=== PATIENT | female | born 1940 | race Hispanic/Latino ===

== ENCOUNTER 2017-08-13 21:52 | Emergency (ER) | payer OTHER ==
[2017-08-13 22:18] LABS: BASOPHILS % (AUTO) 0.2 % (0.0-5.0); EOSINOPHILS % (AUTO) 1.5 % (0.0-8.0); HEMATOCRIT 39.3 % (36-48); LYMPHOCYTES % (AUTO) 21.3 % (21.0-51.0); MEAN CORPUSCULAR HEMOGLOBIN 30.6 pg (27.0-33.0); MEAN CORPUSCULAR HGB CONC 34.1 g/dL (32.0-36.0); MEAN CORPUSCULAR VOLUME 89.8 fL (79-99); MONOCYTES % (AUTO) 7.6 % (3.0-13.0); NEUTROPHILS % (AUTO) 69.4 % (40.0-77.0); PLATELET COUNT (AUTO) 223 K/uL (130-400); RED BLOOD CELL COUNT(AUTO) 4.37 MIL/uL (4.00-5.50); RED CELL DISTRIBUTION WIDTH 12.7 % (11.0-15.5); WHITE BLOOD COUNT (AUTO) 10.2 K/uL (4.8-10.8)
[2017-08-13 22:26] LABS: CREATININE 0.8 mg/dL (0.5-1.5); POTASSIUM 3.9 mmol/L (3.5-5.1)
[2017-08-13] MEDS ORDERED: HYDRALAZINE HCL 20 MG/ML VIAL ONE (22:29)
[2017-08-13] MEDS ORDERED: HYDROCHLOROTHIAZIDE 25 MG TABLET ONE (22:29)
[2017-08-13 22:31] LABS: ALBUMIN 3.4 g/dL (3.5-5.0); BILIRUBIN,TOTAL 0.3 mg/dL (0.2-1.0); TOTAL PROTEIN, SERUM 7.6 g/dL (6.0-8.3)
[2017-08-13 22:59] LABS: APPEARANCE,URINE Clear (CLEAR); BILIRUBIN,URINE Negative (NEGATIVE); COLOR,URINE Yellow (YELLOW); GLUCOSE, URINE (UA) Negative (NEGATIVE); KETONES,URINE Negative (NEGATIVE); LEUKOCYTE ESTERASE ,URINE Large (NEGATIVE); NITRATE,URINE Positive (NEGATIVE); OCCULT BLOOD,URINE Negative (NEGATIVE); PROTEIN,URINE Negative (NEGATIVE); UROBILINOGEN,URINE 0.2 mg/dL (0.2-1.0)
[2017-08-13 23:07] LABS: BACTERIA,URINE Moderate /HPF (None Seen); RBC,URINE None Seen /HPF (0-1); SQUAMOUS EPITHELIAL CELL,UR Rare /HPF (0-2)
== END 2017-08-13 23:55 | disposition home or self-care (01) ==
LOC: EDH 21:52
DX: I10 Essential (primary) hypertension (principal); E78.5 Hyperlipidemia, unspecified; E11.9 Type 2 diabetes mellitus without complications
CPT/HCPCS: 36415; 80053; 81001; 85025; 93005; 96365; 99285; J0360

== ENCOUNTER → 2018-03-22 | Outpatient (CLI) | payer OTHER | END | disposition home or self-care (01) | LOC: RAH 13:50 | PROVIDERS: ATTEND Family Medicine | DX: Z12.31 Encounter for screening mammogram for malignant neoplasm of breast (principal) | CPT/HCPCS: 77067 ==

== ENCOUNTER → 2020-05-09 | Outpatient (CLI) | payer OTHER | END | disposition home or self-care (01) | LOC: RAH 07:30 | PROVIDERS: ATTEND Family Medicine | DX: N64.89 Other specified disorders of breast (principal); R92.8 Other abnormal and inconclusive findings on diagnostic imaging of breast | CPT/HCPCS: 77066 ==

== ENCOUNTER 2020-08-06 15:12 | Emergency (ER) | payer OTHER ==
[2020-08-06] MEDS ORDERED: HYDRALAZINE HCL 25 MG TABLET ONE (15:47)
[2020-08-06 15:51] LABS: BASOPHILS % (AUTO) 0.3 % (0.0-5.0); EOSINOPHILS % (AUTO) 2.2 % (0.0-8.0); HEMATOCRIT 40.9 % (36-48); LYMPHOCYTES % (AUTO) 14.8 % (21.0-51.0); MEAN CORPUSCULAR HEMOGLOBIN 29.4 pg (27.0-33.0); MEAN CORPUSCULAR VOLUME 91.9 fL (79-99); MONOCYTES % (AUTO) 7.2 % (3.0-13.0); NEUTROPHILS % (AUTO) 75.3 % (40.0-77.0); PLATELET COUNT (AUTO) 198 K/uL (130-400); RED BLOOD CELL COUNT(AUTO) 4.45 MIL/uL (4.00-5.50); RED CELL DISTRIBUTION WIDTH 12.2 % (11.0-15.5); WHITE BLOOD COUNT (AUTO) 9.5 K/uL (4.8-10.8)
[2020-08-06 16:02] LABS: CREATININE 0.8 mg/dL (0.5-1.5); POTASSIUM 4.6 mmol/L (3.5-5.1)
[2020-08-06 16:04] LABS: INR 0.95 (0.85-1.15); PROTHROMBIN TIME 10.4 SEC (9.6-11.6)
[2020-08-06 16:05] LABS: PARTIAL THROMBOPLASTIN TIME 26.9 SEC (26.3-35.5)
[2020-08-06 16:16] LABS: B-TYPE NATRIURETIC PEPTIDE 148 pg/mL (0-100)
== END 2020-08-06 17:08 | disposition home or self-care (01) ==
LOC: EDH 15:12
DX: I10 Essential (primary) hypertension (principal); F41.8 Other specified anxiety disorders; E11.9 Type 2 diabetes mellitus without complications; E78.5 Hyperlipidemia, unspecified
CPT/HCPCS: 36415; 80048; 83880; 84484; 85025; 85610; 85730; 93005

== ENCOUNTER → 2021-06-24 | Outpatient (CLI) | payer OTHER | END | disposition home or self-care (01) | LOC: RAH 14:20 | PROVIDERS: ATTEND Family Medicine | DX: Z12.31 Encounter for screening mammogram for malignant neoplasm of breast (principal) | CPT/HCPCS: 77067 ==

== ENCOUNTER 2024-01-25 18:52 | Emergency (ER) | payer OTHER ==
[2024-01-25 19:13] VITALS: BP 148/77; PULSE 94; RESP 16
[2024-01-25] MEDS: acetaMINOPHEN 500 MG TABLET PO ONE (19:28)
== END 2024-01-26 00:58 ==
LOC: EDH 18:52
DX: S30.0XXA Contusion of lower back and pelvis, initial encounter (principal); S24.159A Other incomplete lesion at unspecified level of thoracic spinal cord, initial encounter; S37.892A Contusion of other urinary and pelvic organ, initial encounter; I10 Essential (primary) hypertension; E11.9 Type 2 diabetes mellitus without complications; E78.00 Pure hypercholesterolemia, unspecified; W05.0XXA Fall from non-moving wheelchair, initial encounter; Y93.89 Activity, other specified; Y92.89 Other specified places as the place of occurrence of the external cause; Y99.8 Other external cause status
CPT/HCPCS: 72070; 72100; 72170

== ENCOUNTER 2024-03-12 15:11 | Emergency (ER) | payer OTHER ==
[~2024-03-12] VITALS: Ht 172.7 cm; Wt 70.3 kg
[2024-03-12 18:21] VITALS: BP 142/62; PULSE 72; RESP 18; TEMP 98.1; O2SAT 98
== END 2024-03-12 18:22 | disposition home or self-care (01) ==
LOC: EDH 15:11
DX: S00.83XA Contusion of other part of head, initial encounter (principal); E11.9 Type 2 diabetes mellitus without complications; E78.00 Pure hypercholesterolemia, unspecified; I10 Essential (primary) hypertension; W18.39XA Other fall on same level, initial encounter; Y93.89 Activity, other specified; Y92.89 Other specified places as the place of occurrence of the external cause; Y99.8 Other external cause status
CPT/HCPCS: 70450; 72125

== ENCOUNTER 2024-09-03 18:09 | Emergency (ER) | payer OTHER ==
[~2024-09-03] VITALS: Ht 152.4 cm; Wt 68.0 kg
[2024-09-03 20:22] LABS: BASOPHILS # (AUTO) 0.02 K/uL (0.00-0.20); BASOPHILS % (AUTO) 0.2 % (0.0-5.0); EOSINOPHILS # (AUTO) 0.05 K/uL (0.00-0.70); EOSINOPHILS % (AUTO) 0.5 % (0.0-8.0); HEMATOCRIT 39.5 % (36-48); IMMATURE GRANULOCYTE ABSOLUTE 0.04 K/uL (0-1); LYMPHOCYTES # (AUTO) 1.1 K/uL (1.0-4.8); LYMPHOCYTES % (AUTO) 9.5 % (21.0-51.0); MEAN CORPUSCULAR HEMOGLOBIN 28.2 pg (27.0-33.0); MEAN CORPUSCULAR HGB CONC 31.6 g/dL (32.0-36.0); MEAN CORPUSCULAR VOLUME 89.2 fL (79-99); MONOCYTES # (AUTO) 0.7 K/uL (0.1-1.0); MONOCYTES % (AUTO) 6.1 % (3.0-13.0); NEUTROPHILS # (AUTO) 9.2 K/uL (1.8-7.7); NEUTROPHILS % (AUTO) 83.3 % (40.0-77.0); PLATELET COUNT (AUTO) 239 K/uL (130-400); RED BLOOD CELL COUNT(AUTO) 4.43 MIL/uL (4.00-5.50); RED CELL DISTRIBUTION WIDTH 13.9 % (11.0-15.5); WHITE BLOOD COUNT (AUTO) 11.1 K/uL (4.8-10.8)
[2024-09-03 20:38] LABS: POTASSIUM 3.6 mmol/L (3.5-5.1)
[2024-09-03 20:43] LABS: ALBUMIN 2.9 g/dL (3.5-5.0); BILIRUBIN,DIRECT 0.1 mg/dL (0.0-0.3); BILIRUBIN,TOTAL 0.2 mg/dL (0.2-1.0); TOTAL PROTEIN, SERUM 7.7 g/dL (6.0-8.3)
--- NOTE | 2024-09-03 21:09 | ERN ---
General Chief Complaint: Nausea,Vomiting,Diarrhea Stated Complaint: EMESIS X 1 AFTER DINNER Time Seen by MD: 19:02 Time Seen by Midlevel: 19:02 Source: patient History of Present Illness Initial Comments The patient is an 84-year-old female with a past medical history of dementia being brought in by EMS from [facility] after she had one episode of vomit after having dinner. No other episodes have been reported since. On arrival history was obtained via EMS. Patient was a poor historian given her history of dementia. Allergies: Coded Allergies: No Known Drug Allergies (Unverified Allergy, Unknown, 08/06/20) Home Meds No Active Prescriptions or Reported Meds Past Medical History Past Medical History: Dementia, Depression, Diabetes-Type II, High Cholesterol, Hypertension Past Surgical History: Unknown Female( History) History: Not Applicable ROS Dictation CONSTITUTIONAL: Negative except for HPI HEAD/FACE: Negative except for HPI EENT: Negative except for HPI RESPIRATORY: Negative except for HPI GASTROINTESTINAL/ABDOMINAL: Negative except for HPI GENITOURINARY: Negative except for HPI MUSCULOSKELETAL: Negative except for HPI INTEGUMENTARY: Negative except for HPI NEUROLOGICAL/PSYCH: Negative except for HPI HEMATOLOGIC/LYMPHATIC: Negative except for HPI All Systems Negative, Except as noted above. 13 point review of systems assessed and all negative except for above. Physical Exam Physical Exam Dictation Vital Signs reviewed General Appearance: Alert, answer simple questions, frail-appearing Head and Face: non-traumatic. Eyes: PERRL, pink conjunctivas, eyelid no trauma, anterior chamber with arcus senilis. Ears: Pinnas intact and no signs of trauma or erythema ear canals clear and no discharge TM no erythema Nose: No discharge, no bleeding. Oropharynx: Mouth normal, tongue pink, pharynx clear,no erythema, tonsils no exudates, no abscesses noted, mucous membrane moist Neck: Supple, non-tender, no thyromegaly, no masses, no JVD, no bruits Breast:Deferred Chest:No tenderness, no crepitus, no paradoxical movement, no retractions Lungs:Clear, well-ventilated, symmetric, no rales, no wheezing, no rhonchi, no stridor, good breath sounds bilaterally Heart: Regular rate, regular rhythm, no murmur, no gallops Vascular: no peripheral edema, Abdomen: Soft, positive bowel sounds, nondistended, no guarding, nontender, no rebound, no masses no hepatomegaly, no splenomegaly, no Small's s ign, no hernias. Rectal: Deferred Genital: Deferred Neurological: Normal speech, motor function intact, sensory function intact Musculoskeletal: Neck nontender, full range of motion, back nontender, full range of motion, Extremities: nontender, full range of motion Skin: Color pink, dry, no turgor, no rash, no lacerations, no abrasions, no contusions. Lymphatic: Deferred Results Laboratory and Microbiology Lab and Micro Result Laboratory Tests Test 09/03/24 20:14 White Blood Count 11.1 K/uL (4.8-10.8) H Red Blood Count 4.43 MIL/uL (4.00-5.50) Hemoglobin 12.5 g/dL (12.0-16.0) Hematocrit 39.5 % (36-48) Mean Corpuscular Volume 89.2 fL (79-99) Mean Corpuscular Hemoglobin 28.2 pg (27.0-33.0) Mean Corpuscular Hemoglobin Concent 31.6 g/dL (32.0-36.0) L Red Cell Distribution Width 13.9 % (11.0-15.5) Platelet Count 239 K/uL (130-400) Mean Platelet Volume 9.8 fL (7.5-10.5) Immature Granulocyte % (Auto) 0.4 % (0-1) Neutrophils (%) (Auto) 83.3 % (40.0-77.0) H Lymphocytes (%) (Auto) 9.5 % (21.0-51.0) L Monocytes (%) (Auto) 6.1 % (3.0-13.0) Eosinophils (%) (Auto) 0.5 % (0.0-8.0) Basophils (%) (Auto) 0.2 % (0.0-5.0) Neutrophils # (Auto) 9.2 K/uL (1.8-7.7) H Lymphocytes # (Auto) 1.1 K/uL (1.0-4.8) Monocytes # (Auto) 0.7 K/uL (0.1-1.0) Eosinophils # (Auto) 0.05 K/uL (0.00-0.70) Basophils # (Auto) 0.02 K/uL (0.00-0.20) Absolute Immature Granulocyte (auto 0.04 K/uL (0-1) Nucleated Red Blood Cells 0.0 % (0.0-0.19) White Cell Morphology Comment See comments Sodium Level 135 mmol/L (136-145) L Potassium Level 3.6 mmol/L (3.5-5.1) Chloride Level 99 mmol/L (101-111) L Carbon Dioxide Level 29 mmol/L (21-32) Blood Urea Nitrogen 22 mg/dL (7-18) H Creatinine 1.0 mg/dL (0.5-1.0) Glomerular Filtration Rate Calc 55 mL/min (>90) Random Glucose 243 mg/dL (70-105) H Total Calcium 9.5 mg/dL (8.5-10.1) Total Bilirubin 0.2 mg/dL (0.2-1.0) Direct Bilirubin 0.1 mg/dL (0.0-0.3) Aspartate Amino Transf (AST/SGOT) 16 U/L (10-37) Alanine Aminotransferase (ALT/SGPT) 20 U/L (12-78) Alkaline Phosphatase 108 U/L (50-136) Total Protein 7.7 g/dL (6.0-8.3) Albumin 2.9 g/dL (3.5-5.0) L Lipase 29 U/L (16-77) Labs Reviewed?: Yes MDM MDM: The patient is an 84-year-old female with a past medical history of dementia being brought in by EMS from [facility] after she had one episode of vomit after having dinner. No other episodes have been reported since. On arrival history was obtained via EMS. Patient was a poor historian given her history of dementia. Initial vital signs are stable. On physical examination the patient was alert and is able to answer simple questions and follows simple commands. Per EMS the patient was here for nausea and vomiting however while in the emergency department the patient has had no episodes of nausea and vomiting. When asked if she has any pain she denies having any complaints. Patient is a poor hi storian given her history of dementia however her physical examination is reassuring. Her blood work is stable. She will be discharged back to care home. Differential diagnosis: Dehydration, electrolyte abnormality, pancreatitis There are no social concerns with this patient. Prescription drug management Prescriptions will include: None Medical management and examination interpretation discussions were had by me with other qualified healthcare professionals as indicated for the patient's care. ED Course Orders Procedure Category Date Status Time Cbc With Differential LAB 09/03/24 Complete 19:14 Basic Metabolic Panel LAB 09/03/24 Complete 19:14 Hepatic Function Panel LAB 09/03/24 Complete 19:14 Lipase LAB 09/03/24 Complete 19:14 Vital Signs Date Time Temp Pulse Resp B/P (MAP) Pulse Ox O2 Delivery O2 Flow Rate FiO2 09/03/24 20:24 97.9 81 16 137/71 98 Room Air* 0 21 09/03/24 18:12 98.4 85 20 149/67 97 Room Air 0 DX & DISP Disposition: Discharge Departure Impression: Primary Impression: Wellness examination Condition: Stable Scripts No Active Prescriptions or Reported Meds Additional Instructions: Blood work today is stable. The patient has not had any episodes of vomiting while in the emergency department. Referrals: AMBERLY DIAL (PCP) Time of Disposition: 21:14 I have reviewed the case, and I agree with, Diagnosis and Plan I performed the substantive portion of the visit. I have reviewed and personally made and approve the management plan that is documented in the note by myself or the FLA[facility]. I acknowledge for responsibility for the patient's management plan. AMBERLY ARGUETA Sep 03, 2024 21:09
--- NOTE | 2024-09-03 23:39 | NUR ---
[facility] CONTACTED FOR TRANSFER TO [facility]
[2024-09-04 01:30] VITALS: BP 112/52; PULSE 80; RESP 16; TEMP 97.4; O2SAT 97
== END 2024-09-04 01:35 | disposition home or self-care (01) ==
LOC: EDH 18:09
DX: R11.10 Vomiting, unspecified (principal); E11.9 Type 2 diabetes mellitus without complications; E78.00 Pure hypercholesterolemia, unspecified; F03.90 Unspecified dementia, unspecified severity, without behavioral disturbance, psychotic disturbance, mood disturbance, and anxiety; I10 Essential (primary) hypertension
CPT/HCPCS: 36415; 80048; 80076; 83690; 85025; 99283